=== PATIENT | female | born 1960 | race Caucasian/White ===

== ENCOUNTER → 2019-05-01 | Outpatient (CLI) | payer OTHER ==
[2016-08-17 09:30] VITALS: BP 152/74
[~2019-05-01] MED LIST: ALBU0.63 NEB; ALPR0.5T6 PO; CETI10TA30 PO; CITA20TA6 PO; CYCL10TA2 PO; CYCL5TAB PO; HYDR-2765 PO; HYDR-3164 PO; LEVO25TA4 PO; LISI-334 PO; LOSA1TAB19 PO; MELO15TA23 PO; METO50TA6 PO; NAPR500T8 PO; SERT50TA8 PO; SIMV20TA3 PO
--- NOTE | 2019-05-01 16:29 | KCIC ---
EXAM: HIP RIGHT 2V WITH PELVIS. HISTORY: Right hip pain injury. COMPARISON: 03/09/2016. FINDINGS: No fractures are identified throughout. Osteopenia is moderate to severe for patient age. The joint spaces of the right hip appear maintained. There is a tiny osteophyte along the lateral aspect of the femoral articular surface. There is mildly decreased femoral head/neck offset anteriorly on the right. Osteoarthritis of the left hip is moderate. There are moderate to severe degenerative changes of the lower lumbar spine. A lumbar dextrocurvature is incompletely visualized. IMPRESSION: 1. Hip osteoarthritis is moderate on the left and mild on the right. 2. Right femoral head/neck morphology suggesting mild femoroacetabular impingement. 3. Moderate to severe osteopenia for patient age. Electronically signed by: Gustavo Benavides MD (05/01/2019 4:26 PM) [facility]
== END | disposition home or self-care (01) ==
LOC: KCIC 11:47
PROVIDERS: ATTEND Physician Assistant Medical
DX: M16.0 Bilateral primary osteoarthritis of hip (principal); M85.88 Other specified disorders of bone density and structure, other site
CPT/HCPCS: 73502

== ENCOUNTER → 2019-05-17 | Outpatient (CLI) | payer OTHER ==
[2016-08-17 09:30] VITALS: BP 152/74
--- NOTE | 2019-05-17 12:07 | KCIC ---
Lumbar spine, 3 views, 05/17/2019: HISTORY: Right-sided low back pain with sciatica There is a mild thoracolumbar scoliosis. The lumbar vertebral heights are well-maintained. There are moderate scattered marginal spurs. There are moderate degenerative changes involving the facet joints in the lower lumbar spine. Aortic calcific plaquing is present. IMPRESSION: 1. Mild thoracolumbar scoliosis with moderate multilevel degenerative change. 2. No acute bony abnormality is detected. Electronically signed by: Myron Cervantes MD (05/17/2019 12:04 PM) [facility]
--- NOTE | 2019-05-22 14:11 | KCIC ---
MRI of the lumbar spine without contrast 05/22/2019 CLINICAL HISTORY: Low back pain with right leg weakness. TECHNIQUE: Unenhanced T1-weighted and T2-weighted sagittal and axial and inversion recovery sagittal images of the lumbar spine were obtained. FINDINGS: Comparison is made to radiographs of the lumbar spine dated 05/17/2019. Mild to moderate S-shaped curvature of the thoracolumbar spine is seen. Degenerative signal changes are seen involving all of the disks of the lower thoracic and throughout the lumbar spine. Degenerative signal changes are seen within the marrow surrounding these discs. Loss of height of the L4-5 and L5-S1 discs is noted. The conus medullaris is normal morphology, position, and signal characteristics. A 3 cm rounded high signal intensity lesion is seen involving the midpole of the left kidney on the T2-weighted images. This likely represents a cyst. At the L1-2 disc space there is a mild generalized disc bulge. Degenerative changes are seen involving the facet joints bilaterally. There is mild ligamentum flavum hypertrophy bilaterally. There is prominence of the posterior epidural fat. These findings when combined result in mild central spinal canal stenosis. No neural foraminal stenosis is seen. At the L2-3 disc space there is a mild generalized disc bulge. Degenerative changes are seen involving the facet joints bilaterally. There is prominence of the posterior epidural fat. There is mild ligamentum flavum hypertrophy bilaterally. These findings when combined result in mild central spinal canal stenosis. No neural foraminal stenosis is seen. At the L3-4 disc space there is a mild to moderate generalized disc bulge. This is eccentric to the left. Degenerative changes are seen involving the facet joints bilaterally. There is mild ligamentum flavum hypertrophy bilaterally. There is prominence of the posterior epidural fat. These findings when combined result in mild to moderate central spinal canal stenosis. No neural foraminal stenosis is seen. At the L4-5 disc space there is a moderate generalized disc bulge. This is eccentric to the right. Degenerative changes are seen involving the facet joints bilaterally. There is mild ligamentum flavum hypertrophy bilaterally. There is prominence of the posterior epidural fat. These findings when combined result in mild central spinal canal stenosis. Moderate right neural foraminal stenosis is seen. The left neural foramen is patent. At the L5-S1 disc space there is a mild generalized disc bulge. Superimposed on this disc bulge is a central/right paracentral focal disc protrusion. This measures 4 mm in AP diameter. Degenerative changes are seen involving the facet joints bilaterally. There is mild ligamentum flavum hypertrophy bilaterally. These findings when combined result in mild right greater than left central spinal canal stenosis. No neural foraminal stenosis is seen. IMPRESSION: The changes of degenerative disc disease are seen throughout the lumbar spine. These findings result in mild central spinal canal stenosis at L1-2, L2-3 and L4-5. Mild to moderate central spinal canal stenosis is seen at L3-4. Mild right greater than left central spinal canal stenosis is seen at L5-S1. Moderate right neural foraminal stenosis is seen at L4-5. Electronically signed by: Luca Hammer MD (05/22/2019 2:09 PM) [facility]
== END | disposition home or self-care (01) ==
LOC: KCIC 11:11
PROVIDERS: ATTEND Family Medicine
DX: M41.85 Other forms of scoliosis, thoracolumbar region (principal); M47.816 Spondylosis without myelopathy or radiculopathy, lumbar region; M77.8 Other enthesopathies, not elsewhere classified
CPT/HCPCS: 72100

== ENCOUNTER → 2019-12-12 | Outpatient (CLI) | payer OTHER ==
[2019-10-25 11:00] VITALS: BP 136/90
[~2019-12-12] MED LIST changes: +GABA300C9; +SIMV20TA18 PO; -SIMV20TA3 PO
--- NOTE | 2019-12-12 12:34 | RAD ---
EXAM: Renal sonogram. HISTORY: Renal cyst on CT. TECHNIQUE: Sonographic imaging of the kidneys and bladder was performed. COMPARISON: 10/24/2019. FINDINGS: The right kidney measures 9.5 cm pole. The left kidney measures 9.2 cm [id number]. There are small simple appearing renal cysts, the largest of which on the right measures 1.7 cm and the largest of which on the left measures 3.0 cm. No solid renal lesion is seen. There is no hydronephrosis. The inferior cava is patent. The aorta is normal in caliber. The bladder volume is 31 cc. IMPRESSION: Bilateral simple appearing renal cysts. Electronically signed by: Jenifer Combs MD (12/12/2019 12:31 PM) [facility]
== END | disposition home or self-care (01) ==
LOC: US 10:13
PROVIDERS: ATTEND Physician Assistant Medical
DX: N28.1 Cyst of kidney, acquired (principal)
CPT/HCPCS: 76770

== ENCOUNTER → 2020-01-13 | Outpatient (CLI) | payer OTHER ==
[2019-10-25 11:00] VITALS: BP 136/90
[~2020-01-13] MED LIST changes: +BUPIVACAINE MPF 0.5% 10 ML VIAL for KCIC. IJ ONE; +IOHEXOL 300 MG/ML 50 ML VIAL. INT ART ONE; +LIDOCAINE 1% Multi-Dose 20 ML VIAL. ID ONE; +methylPREDNISolone ACETATE 40 MG/ML VIAL. INT ART ONE
--- NOTE | 2020-01-13 15:08 | KCIC ---
PROCEDURE Therapeutic right and left hip injection using fluoroscopic guidance. HISTORY Bilateral hip pain. TECHNIQUE The procedure was explained to the patient as were potential risks, including among others infection, bleeding or allergic reaction. All questions were answered. Informed written and verbal consent was obtained. The right hip was prepped and draped in the usual sterile manner. Following administration of local anesthetic, a 22-gauge spinal needle was advanced into the hip joint without difficulty, with care taken to avoid the vascular structures. Stylet was removed and following negative aspiration, a mixture of 4 cc Omnipaque-300, 2 cc (80 mg) Depo-Medrol, 4 cc 0.5% Marcaine and 4 cc 1% lidocaine were injected without difficulty. Fluoroscopy demonstrates uniform and satisfactory distribution of the injection through the hip. The needle was removed. There was good hemostasis at the injection site. The left hip was prepped and draped in the usual sterile manner. Following administration of local anesthetic, a 22-gauge spinal needle was advanced into the hip joint without difficulty, with care taken to avoid the vascular structures. Stylet was removed and following negative aspiration, a mixture of 4 cc Omnipaque-300, 2 cc (80 mg) Depo-Medrol, 4 cc 0.5% Marcaine and 4 cc 1% lidocaine were injected without difficulty. Fluoroscopy demonstrates uniform and satisfactory distribution of the injection through the hip. The needle was removed. There was good hemostasis at the injection site. The patient left in stable condition without immediate complication. The patient was given postprocedural instructions. 2 spot images were obtained. FLUOROSCOPY TIME: 54 seconds Electronically signed by: Skip Rizvi MD (01/13/2020 3:05 PM) [id number]
== END ==
LOC: KCIC 09:52
PROVIDERS: ATTEND Orthopaedic Surgery Sports Medicine
DX: M16.0 Bilateral primary osteoarthritis of hip (principal)
CPT/HCPCS: 20610; 77002; J1030; Q9967